=== PATIENT | male | born 1960 | race Caucasian/White ===

== ENCOUNTER → 2017-04-22 | Outpatient (CLI) | payer BC ==
[2017-04-22 12:56] LABS: BUN 11 mg/dL (7-18)
[2017-04-22 12:57] LABS: GFR (ESTIMATED) 118 ML/MIN (>60)
--- NOTE | 2017-04-22 15:16 | RADIOLOGY REPORT PS360 ---
CHEST(2 VIEWS-NOT PORTABLE) HISTORY: COPD,EMPHYSEMA,LEFT SIDED CHEST PAIN ORDERING PHYSICIAN: Maritza Kyle APRN PATIENT AGE: 56 years COMPARISON: 07/03/2015 FINDINGS: The cardiomediastinal silhouette and pulmonary vascularity are within normal limits. There is hyperinflation with attenuation of the peripheral pulmonary vessels consistent with obstructive chronic bronchitis. Patchy density is present in the left upper lobes frontal and infiltrate. Recommend follow until clear.. No acute bony abnormalities. IMPRESSION: COPD. Patchy infiltrate in the left upper lobe. Recommend follow until clear
== END ==
LOC: LAB 11:19
PROVIDERS: Nurse Practitioner
DX: I10 Essential (primary) hypertension (principal); E78.5 Hyperlipidemia, unspecified; R07.9 Chest pain, unspecified; J43.9 Emphysema, unspecified

== ENCOUNTER → 2017-05-26 | Outpatient (CLI) | payer BC | LOC: RT 09:55 | DX: J43.9 Emphysema, unspecified (principal) ==